=== PATIENT | male | born 1950 | race Caucasian/White ===

== ENCOUNTER 2022-07-03 10:05 | Emergency (ER) | payer MEDICARE, OTHER ==
[2022-07-03] MEDS ORDERED: Sodium Chloride 0.9% 1,000 ML IV ONE (10:45)
[2022-07-03] MEDS ORDERED: cefTRIAXone 2 GM in Sodium Chloride 0.9% 50 ML IV ONE (10:57)
[2022-07-03 11:21] LABS: BASOPHILS PERCENT AUTO 0.3 % (0.1-1.3); HEMATOCRIT 43.2 % (38.4-49.7); HEMOGLOBIN 14.7 g/dL (12.9-16.9); IMMATURE GRAN ABSOLUTE AUTO 0.08 K/uL (0.00-0.23); IMMATURE GRAN PERCENT AUTO 1.1 % (0.0-0.7); LYMPHOCYTES ABSOLUTE AUTO 0.14 K/uL (0.8-3.3); LYMPHOCYTES PERCENT AUTO 1.9 % (11.4-47.7); MEAN CORPUSCULAR HEMOGLOBIN 31.6 pg (31.6-35.5); MEAN CORPUSCULAR VOLUME 92.9 fL (81.4-99.0); MONOCYTES ABSOLUTE AUTO 0.17 K/uL (0.20-0.90); MONOCYTES PERCENT AUTO 2.3 % (3.3-12.6); NEUTROPHILS ABSOLUTE AUTO 6.93 K/uL (1.0-7.6); NEUTROPHILS PERCENT AUTO 94.4 % (40.0-78.1); PLATELET COUNT,PLT 135 K/uL (130-375); RED BLOOD CELL COUNT 4.65 M/uL (4.14-5.76); WHITE BLOOD CELL COUNT,WBC 7.3 K/uL (3.2-11.0)
[2022-07-03 11:22] LABS: BASOPHILS ABSOLUTE AUTO 0.02 K/uL (0.00-0.10)
[2022-07-03 11:52] LABS: A/G RATIO 0.9 (1.2-2.2); ALANINE AMINOTRANSFERASE,ALT 34 U/L (12-78); ALKALINE PHOSPHATASE 67 U/L (46-116); ASPARTATE AMNIOTRANSFERASE,AST 39 U/L (15-37); BILIRUBIN TOTAL 0.5 mg/dL (0.2-1.0); BLOOD UREA NITROGEN,BUN 14 mg/dL (7-18); CALCIUM 8.2 mg/dL (8.5-10.1); CARBON DIOXIDE,CO2 27 mmol/L (21-32); CHLORIDE,CL 103 mmol/L (100-108); CREATININE 1.1 mg/dL (0.8-1.3); EST CRCL DRUG DOSING (CG) 62.75 mL/min; ESTIMATED GFR 70 mL/min (>60); GLUCOSE RANDOM 135 mg/dL (74-106); POTASSIUM,K 3.7 mmol/L (3.6-5.2); PROTEIN TOTAL,TP 6.5 g/dL (6.4-8.2); SODIUM,NA 136 mmol/L (140-148); TROPONIN I HIGH SENSITIVITY 11.4 pg/mL (<=60.3)
[2022-07-03 11:55] LABS: ANION GAP 9.7 mmol/L (5.0-14.0)
[2022-07-03 12:19] LABS: LYME AB IgG Negative (Negative)
[2022-07-03 12:21] LABS: LYME AB IgM Negative (Negative)
[2022-07-03] MEDS ORDERED: Sodium Chloride 0.9% 1,000 ML IV SCH (13:00)
[2022-07-03 14:05] LABS: APPEARANCE,URINE CLEAR (CLEAR); BILIRUBIN,URINE SMALL (NEGATIVE); COLOR,URINE YELLOW (YELLOW); GLUCOSE,URINE NEGATIVE (NEGATIVE); KETONES,URINE 15 mg/dL (NEGATIVE); LEUKOCYTE ESTERASE,URINE NEGATIVE (NEGATIVE); NITRITE,URINE NEGATIVE (NEGATIVE); OCCULT BLOOD,URINE NEGATIVE (NEGATIVE); PH,URINE 5.5 (5.0-8.0); PROTEIN,URINE 100 mg/dL (NEGATIVE)
[2022-07-03 14:13] LABS: AMORPHOUS SEDIMENT,URINE FEW; BACTERIA,URINE MODERATE; EPITHELIAL CELLS,URINE RARE; MUCUS,URINE FEW; RBC,URINE 0-5 (0-5); WBC,URINE 0-5 (0-5)
[2022-07-03 15:32] VITALS: BP 125/55; PULSE 80
[2022-07-04] MEDS ORDERED: predniSONE 1 MG Tab PO ONE (10:56)
== END 2022-07-03 16:09 | disposition home or self-care (01) ==
LOC: JP.ED 10:05
DX: R53.1 Weakness (principal); R68.83 Chills (without fever); Z88.0 Allergy status to penicillin
CPT/HCPCS: 36415; 80053; 81001; 84484; 85025; 86618; 87040; 93005; 96361; 96365; 99285; J0696; J3490; J7030; J7050; J7512